=== PATIENT | male | born 1990 ===

== ENCOUNTER 2022-12-18 21:36 | Outpatient (REF) | payer BC, SELFPAY ==
[2022-12-20 09:42] LABS: Hepatitis C Ab w Rflx HCV PCR Negative (Negative)
[2022-12-20 10:03] LABS: HBs Antibody, Quant >1000.0 mIU/mL (See Note); Hepatitis B Surface Ab Positive (See Note)
[2022-12-20 10:06] LABS: HIV-1/2 Ag & Ab Screen Negative (Negative)
[2022-12-20 10:13] LABS: Syphilis Serology (RPR) Negative (Negative)
[2022-12-20 11:02] LABS: HSV Type 1 Ab, IgG Positive (Negative); HSV Type 2 Ab, IgG Negative (Negative)
[2022-12-20 13:10] LABS: Chlamydia Result Negative (Negative); GC Result Negative (Negative)
== END 2022-12-18 21:37 | disposition home or self-care (01) ==
LOC: NCHCN 21:36
PROVIDERS: Visit Provider Family Medicine
DX: Z11.3 Encounter for screening for infections with a predominantly sexual mode of transmission (principal); Z11.4 Encounter for screening for human immunodeficiency virus [HIV]; Z11.59 Encounter for screening for other viral diseases
CPT/HCPCS: 86706; 86803; 87389; 87491; 87591; 86592; 86695; 86696